=== PATIENT | female | born 1935 | race Caucasian/White ===

== ENCOUNTER 2018-05-27 08:02 | Emergency (ER) | payer MEDICARE ==
[2018-05-27] MEDS ORDERED: HYDROcodone/Acetaminophen 5/325 mg Tablet ONE (08:31)
[2018-05-27] MEDS ORDERED: Ketorolac Tromethamine 30 MG/ML VIAL ONE (08:31)
--- NOTE | 2018-05-27 09:23 | CT ---
CT CHEST PERFORMED WITHOUT CONTRAST ENHANCEMENT: Date: 05/27/18 HISTORY: Patient with fall, with left lateral chest pain. FINDINGS: The lungs are clear of any infiltrative process. There are no signs of any pulmonary contusion. No pl eural effusion seen. No pneumothorax demonstrated. There are old left-sided rib fractures. In additio n, there is an acute left posterolateral 10th rib fracture. The remainder of the fractures that are s een all appear old. On the right side, I do not see any signs of any acute fracture. There are atherosclerotic changes of the aorta. There are coronary artery calcifications present. The re is moderate hiatal hernia seen. Visualized liver parenchyma shows no focal findings. IMPRESSION: 1. Acute appearing left posterolateral 10th rib fracture. Multiple older rib fractures are seen on t he left side, but this is the only definitive acute fracture noted. No pneumothorax or pleural effusi on. 2. Moderate hiatal hernia. 3. No additional acute findings. POS: [facility]
--- NOTE | 2018-05-27 09:32 | RAD ---
PA CHEST AND LEFT RIBS 3 VIEWS: HISTORY: Fall with left-sided rib pain. FINDINGS: There are multiple old left rib fractures. It is difficult to definite appreciate the acute 10th rib fracture which was noted on the chest CT on this plain film exam. No pneumothorax. Heart size is enlarged. There is postop sternotomy change. No pneumothorax is seen. IMPRESSION: 1. Multiple old left rib fractures. The acute left 10th rib fracture noted on CT is not well apprec iated on plain films. 2. Cardiomegaly. POS: [facility]
== END 2018-05-27 11:07 | disposition home or self-care (01) ==
LOC: SCSER 08:02
DX: S22.32XA Fracture of one rib, left side, initial encounter for closed fracture (principal); E78.5 Hyperlipidemia, unspecified; I10 Essential (primary) hypertension; Z79.899 Other long term (current) drug therapy; W19.XXXA Unspecified fall, initial encounter
CPT/HCPCS: 71250; 96372; J1885

== ENCOUNTER 2018-11-03 10:44 | Emergency (ER) | payer MEDICARE ==
--- NOTE | 2018-11-03 11:20 | CT ---
CT head without contrast: Multiple axial tomograms obtained through the head without IV enhancement. INDICATIONS: Fall with head injury. COMPARISON: None FINDINGS: Ventricles have normal size and position. Cortical atrophy and chronic ischemic white matter change. No evidence of intracranial mass, hemorrhage, edema, or infarct. Visualized sinuses and mastoids appear clear. Bony calvarium appears unremarkable. IMPRESSION: No acute finding
--- NOTE | 2018-11-03 11:34 | RAD ---
LEFT FOURTH FINGER: Date: 11/03/18 HISTORY: Injury. FINDINGS: Nondisplaced fracture of the distal tuft of the distal phalanx of the fourth finger. Heterogeneous michael ne demineralization and arthrosis changes. IMPRESSION: Nondisplaced tuft fracture distal phalanx fourth finger. POS: [facility]
== END 2018-11-03 12:35 | disposition home or self-care (01) ==
LOC: SCSER 10:44
DX: S62.665A Nondisplaced fracture of distal phalanx of left ring finger, initial encounter for closed fracture (principal); S00.83XA Contusion of other part of head, initial encounter; X58.XXXA Exposure to other specified factors, initial encounter
CPT/HCPCS: 29130; 70450

== ENCOUNTER 2019-08-11 12:06 | Day surgery (SDC) | payer MEDICARE | END 2019-08-11 13:30 | disposition home or self-care (01) | LOC: SDC 12:06 | PROVIDERS: ATTEND Ophthalmology | PROC: 085K3ZZ Destruction of Left Lens, Percutaneous Approach (ICD-10-PCS; principal; 2019-08-11) | PROC: 085J3ZZ Destruction of Right Lens, Percutaneous Approach (ICD-10-PCS; 2019-08-11) | DX: H26.493 Other secondary cataract, bilateral (principal); I10 Essential (primary) hypertension; Z88.8 Allergy status to other drugs, medicaments and biological substances ==

== ENCOUNTER 2019-10-13 08:55 | Emergency (ER) | payer MEDICARE ==
--- NOTE | 2019-10-13 09:24 | RAD ---
Left elbow 4 views HISTORY: Fall. Injury. FINDINGS: Radiocapitellar alignment is maintained. Joint spaces preserved. Mild osteophytosis. No acute fracture, dislocation, or fluid distention of the joint capsule evident. IMPRESSION : Mild osteoarthritic changes. No acute osseous abnormalities are demonstrated.
[2019-10-13] MEDS ORDERED: Lidocaine 1% w/Epinephrine 1:100K 20 ML VIAL ONE (09:29)
== END 2019-10-13 11:02 | disposition home or self-care (01) ==
LOC: ERS 08:55
DX: S51.012A Laceration without foreign body of left elbow, initial encounter (principal); I25.10 Atherosclerotic heart disease of native coronary artery without angina pectoris; G20 Parkinson's disease; E78.5 Hyperlipidemia, unspecified; I10 Essential (primary) hypertension; Z87.891 Personal history of nicotine dependence; Z79.899 Other long term (current) drug therapy; Z79.82 Long term (current) use of aspirin; W19.XXXA Unspecified fall, initial encounter
CPT/HCPCS: 12002